=== PATIENT | female | born 1960 ===

== ENCOUNTER 2016-08-02 19:35 | Observation (INO) | payer OTHER ==
[2016-08-02 20:21] VITALS: BP 133/90; PULSE 93; RESP 18; TEMP 98.6; O2SAT 96
[2016-08-02] MEDS ORDERED: Iohexol 240 (50 ml) PO ONE (22:18)
[2016-08-02] MEDS ORDERED: Sodium Chloride 0.9% 1,000 ML IV STA (22:19)
--- NOTE | 2016-08-02 22:22 | ED PDOC ---
HPI: Abdomen Time Seen by Provider: 08/02/16 20:00 Chief Complaint (Nursing): Abdominal Pain Chief Complaint (Provider): Abdominal Pain History Per: Patient, Family (daughter) History/Exam Limitations: no limitations Onset/Duration Of Symptoms: Hrs (x16) Outside of [place] travel?: No Current Symptoms Are (Timing): Still Present Severity: Moderate Location Of Pain/Discomfort: Periumbilical Quality Of Discomfort: Unable To Describe Associated Symptoms: Nausea, Other (dizziness). denies: Fever, Vomiting Additional Complaint(s): Soledad Maciel is a 56 year old female, with a past medical history inclusive of hypothyroidism, who presents to the ED on 08/02/16, accompanied by her daughter , for the evaluation of moderate diffuse but more lower than upper abdominal pain that she has experienced x16 hours. Associated nausea and sensations of dizziness also reported, though she denies fever or vomiting. Previous abdominal surgeries include x1. PMD: Bro Luong Past Medical History Reviewed: Historical Data, Nursing Documentation, Vital Signs Vital Signs: Last Vital Signs Temp 98.6 F 08/02/16 20:18 Pulse 93 H 08/02/16 20:18 Resp 18 08/02/16 20:18 BP 133/90 08/02/16 20:18 Pulse Ox 96 08/03/16 05:08 - Medical History PMH: Hypothyroidism - Surgical History Surgical History: Tonsillectomy, - Family History Family History: States: Unknown Family Hx - Living Arrangements Living Arrangements: With Family - Social History Current smoker - smoking cessation education provided: No Alcohol: None Drugs: Denies - Home Medications Home Medications: Ambulatory Orders Medication Instructions Recorded Fluticasone Nasal [Flonase] 2 actuation NS DAILY #1 bottle 01/25/16 Levothyroxine Sodium [Unithroid] 25 mcg PO DAILY 01/25/16 Ondansetron [Zofran] 4 mg PO Q6H PRN #5 tab 08/03/16 - Allergies Allergies/Adverse Reactions: Allergies Allergy/AdvReac Type Severity Reaction Status Date / Time almond Allergy ITCHING Verified 08/02/16 20:21 cashew nut Allergy ITCHING Verified 08/02/16 20:21 Fruits Allergy ITCHING Uncoded 08/02/16 20:21 Review of Systems ROS Statement: Except As Marked, All Systems Reviewed And Found Negative Constitutional: Negative for: Fever Gastrointestinal: Positive for: Nausea. Negative for: Vomiting Neurological: Positive for: Dizziness Physical Exam - Reviewed Nursing Documentation Reviewed: Yes Vital Signs Reviewed: Yes - Physical Exam Appears: Positive for: Non-toxic, No Acute Distress Head Exam: Positive for: ATRAUMATIC, NORMOCEPHALIC Skin: Positive for: Normal Color, Warm, Dry Eye Exam: Positive for: Normal appearance, PERRL ENT: Positive for: Normal ENT Inspection Cardiovascular/Chest: Positive for: Regular Rate, Rhythm. Negative for: Murmur Respiratory: Positive for: Normal Breath Sounds. Negative for: Respiratory Distress Gastrointestinal/Abdominal: Positive for: Soft, Tenderness (diffuse). Negative for: Mass, Distended, Guarding, Rebound Back: Positive for: Normal Inspection Extremity: Positive for: Normal ROM Neurologic/Psych: Positive for: Alert, Oriented - Laboratory Results Result Diagrams: 08/02/16 22:36 08/02/16 22:36 - ECG O2 Sat by Pulse Oximetry: 96 (RA) Pulse Ox Interpretation: Normal Medical Decision Making Medical Decision Makin:00 Initial Impression: abdominal pain; will r/o intra-abdominal pathology Initial Plan: * CT A/P w/PO and IV contrasta * Labs * Lipase * Urinalysis * Urine C&S * IV NS 1000ml at 150mls/hr * Morphine 4mg IV * Zofran 4mg IV * Reevaluation 22:19 Patient will be placed within ED Observation secondary to time-extensive ED workup. See Obs note for further updates. Scribe Attestation: Documented by Jo Ann Pa, acting as a scribe for Willem Chamorro MD. Provider Scribe Attestation: All medical record entries made by the Scribe were at my direction and personally dictated by me. I have reviewed the chart and agree that the record accurately reflects my personal performance of the history, physical exam, medical decision making, and the department course for this patient. I have also personally directed, reviewed, and agree with the discharge instructions and disposition. ED OBSERVATION Date of observation admission: 08/02/16 Time of observation admission: 22:19 - Observation admission statement Patient is being placed in observation because:: Secondary to time-extensive ED workup. - Goals of Observation Goals of observation are:: Results of ED workup, reevaluation and final disposition. - Progress Note Progress Note: 08/03/16 01:26 CT FINDINGS: Lower thorax: Trace right basilar atelectasis. The remainder of the lung bases are clear. ABDOMEN: Liver: A subcentimeter focus of decreased attenuation is identified within the dome of the liver, too small to characterize, but statistically a cyst. Gallbladder and bile ducts: The gallbladder is distended, without calcified stones. Hyperemia of the gallbladder wall is detected, without surrounding inflammation, a nonspecific finding. No significant intra- or extrahepatic biliary ductal dilation. Pancreas: Enhances homogeneously. No ductal dilation. No discrete mass. Spleen: No acute findings. Adrenals: No acute findings. Kidneys and ureters: No acute findings. No hydronephrosis or renal calculi. No discrete solid mass. PELVIS: Bladder: No acute findings. Reproductive: No acute findings. Appendix: The air filled appendix is of normal caliber (series 2, image 63; series 601, image 45) . ABDOMEN and PELVIS: Stomach and bowel: An infraumbilical hernia is identified (series 2, image 67; series 602, image 89) with fat, and likely omentum within the hernia sac, which extends to the left of midline. Small bowel wall thickening with mild dilatation but no surrounding inflammation or fluid to confirm an acute enteritis. Scattered colonic diverticulum are noted, with trace mural thickening in the sigmoid colon, without surrounding inflammation. Peritoneum: As above. Lymph nodes: No pathologically enlarged lymph nodes. Vasculature: Unremarkable. Bones: No acute fracture. IMPRESSION: Fat (and likely omentum) containing infraumbilical hernia. Mural thickening within multiple loops of small bowel without surrounding inflammation or fluid to confirm an enteritis. Diverticulosis, without diverticulitis. Normal appendix. Dx: enteritis Patient reevaluated and feels completely better. tolerated po in the ED. pt states feels much better now compared to before. pt instructed to follow up with outpatient surgery for hernia and return immediately if pain returns. pt and family agreeable. 08/03/16 04:58 08/03/16 05:01 Disposition - Clinical Impression Clinical Impression: Enteritis - Patient ED Disposition Is Patient to be Admitted: No Counseled Patient/Family Regarding: Studies Performed, Diagnosis, Need For Followup - Disposition Disposition: Routine/Home Disposition Time: 23:19 Condition: IMPROVED
[2016-08-02] MEDS ORDERED: Iohexol 240 (50 ml) ONE (22:33)
[2016-08-02 22:40] LABS: BASO % 0.3 % (0.0-2.0); EOS # 0.1 K/uL (0.0-0.7); EOS % 1.8 % (0.0-4.0); HEMATOCRIT 41.7 % (34.0-47.0); LYMPH # 0.6 K/uL (1.0-4.3); LYMPH % 7.6 % (20.0-40.0); MEAN CELL VOLUME 84.4 fl (81.0-99.0); MEAN CORPUSCULAR HEMOGLOBIN 28.4 pg (27.0-31.0); MEAN CORPUSCULAR HGB CONC 33.7 g/dL (33.0-37.0); MEAN PLATELET VOLUME 7.5 fl (7.2-11.7); MONO # 0.4 K/uL (0.0-0.8); MONO % 5.4 % (0.0-10.0); NEUT % 84.9 % (50.0-75.0); NRBC % 0.1 % (0.0-0.0); PLATELET COUNT 328 K/uL (130-400); RED CELL DISTRIBUTION WIDTH 13.2 % (11.5-14.5); WHITE BLOOD COUNT 8.2 K/uL (4.8-10.8)
[2016-08-02 22:52] LABS: ALB/GLOB RATIO 1.1 (1.0-2.1); ALKALINE PHOSPHATASE 98 U/L (38-126); ALT/SGPT 51 U/L (9-52); AST/SGOT 46 U/L (14-36); BLOOD UREA NITROGEN 12 mg/dl (7-17); CALCIUM 8.8 mg/dL (8.4-10.2); CARBON DIOXIDE 27 mmol/L (22-30); CHLORIDE 96 mmol/L (98-107); GFR AFRICAN-AMERICAN > 60; GLUCOSE,RANDOM 124 mg/dL (65-105); LIPASE 121 U/L (23-300); POTASSIUM 4.3 MMOL/L (3.6-5.0); SODIUM 131 mmol/l (132-148); TOTAL PROTEIN 7.8 G/DL (6.3-8.2)
[2016-08-02 23:30] LABS: EOSINOPHIL 2 % (0-7); NEUTROPHIL 83 % (42-75); TOTAL CELLS COUNTED 100
[2016-08-02 23:32] LABS: LARGE PLATELETS PRESENT
[2016-08-03 00:47] LABS: RBC URINE 2 /hpf (0-3); URINE BACTERIA RARE (<OCC); URINE BILIRUBIN NEGATIVE (NEGATIVE); URINE BLOOD NEGATIVE (NEGATIVE); URINE COLOR STRAW (YELLOW); URINE GLUCOSE (UA) NEG (Normal); URINE KETONE NEGATIVE (NEGATIVE); URINE LEUKOCYTE ESTERASE NEG Leu/uL (Negative); URINE PROTEIN NEGATIVE (NEGATIVE); URINE UROBILINOGEN 0.2-1.0 mg/dL (0.2-1.0); WBC URINE 1 /hpf (0-5)
[2016-08-03] MEDS ORDERED: Sodium Chloride 0.9% 50 ML IV ONE (00:48)
[2016-08-03] MEDS ORDERED: Iohexol 300 100 ML IJ ONE (00:48)
--- NOTE | 2016-08-03 08:14 | CT ---
PROCEDURE: CT Abdomen and Pelvis with contrast HISTORY: abd pain COMPARISON: None. TECHNIQUE: Axial and reformatted coronal and sagittal CT images of the abdomen and pelvis were obtained after IV and oral contrast administration. Contrast dose: 95 cc of Omnipaque 300 Radiation dose: Total exam DLP = 784.46 mGy-cm. This CT exam was performed using one or more of the following dose reduction techniques: Automated exposure control, adjustment of the mA and/or kV according to patient size, and/or use of iterative reconstruction technique. FINDINGS: LOWER THORAX: Small opacities at the right lung base likely atelectasis. LIVER: Unremarkable. No gross lesion or ductal dilatation. GALLBLADDER AND BILE DUCTS: [id number] diffuse gallbladder wall thickening without definite CT evidence of acute cholecystitis. The CBD is not dilated. PANCREAS: Unremarkable. No gross lesion or ductal dilatation. SPLEEN: Unremarkable. ADRENALS: Unremarkable. No mass. KIDNEYS AND URETERS: Unremarkable. No hydronephrosis. No solid mass. VASCULATURE: Unremarkable. No aortic aneurysm. BOWEL: Mildly dilated small bowel loops demonstrate mild wall thickening in the mid and lower abdomen. Correlate clinically for enteritis. No CT evidence of colitis. Colonic diverticulosis without evidence of diverticulitis. APPENDIX: Normal appendix. PERITONEUM: Unremarkable. No free fluid. No free air. LYMPH NODES: Unremarkable. No enlarged lymph nodes. BLADDER: Unremarkable. REPRODUCTIVE: Mildly enlarged heterogeneous uterus likely contains small fibroid. There is 1.6 centimeter cystic lesion at the left adnexa. BONES: No acute fracture. OTHER FINDINGS: There is fat containing midline ventral hernia measures 5.2 x 2.9 centimeter. IMPRESSION: Gallbladder wall thickening without definite CT evidence of acute cholecystitis. If clinically warranted further assessment by ultrasound or hepatobiliary scan may be obtained. Fat containing midline ventral hernia seen at the lower anterior abdominal wall. Mildly dilated small bowel loops demonstrate mild wall thickening. Correlate clinically for enteritis. 1.6 centimeter cyst at the left adnexa. Interval follow-up reassessment by ultrasound is suggested. Preliminary report was submitted by [facility].
== END 2016-08-03 02:12 | disposition home or self-care (01) ==
LOC: H.ER 19:35 → H.EROBSV 22:19
PROVIDERS: ADMIT Emergency Medicine; ATTEND Emergency Medicine
DX: K52.9 Noninfective gastroenteritis and colitis, unspecified (principal)